=== PATIENT | female | born 1985 | race Caucasian/White ===

== ENCOUNTER 2018-01-20 17:18 | Emergency (ER) | payer BC ==
--- OUTSIDE RECORDS SUMMARY | 2018-01-20 17:28 | XMS REPORT ---
:1985 External Reference #:[id number] Author Organization [facility] Address [address] [place] [address] [place] [address] Phone [phone] Care Team Providers Name Role Phone Bg Rowley MD Care Team Information Senior Health Educator Unavailable Payers Type Date Identification Numbers Payment Provider Subscriber Commercial Effective: Policy Number: [id number] BS Giovanna Mendez 2017 PayID: [id number] [address] [place] [address] Problems Description No Information Family History Date Family Member(s) Problem(s) Comments Mother Hypertension Mother fibroid tumors Social History Type Date Description Comments Lives With Principal at [facility] Lives With Daughter Occupation Speech Therapist Smoking Patient has never smoked Exercise Type/Frequency Exercises regularly 2-3x/week Allergies, Adverse Reactions, Alerts Date Description Reaction Status Severity Comments 12/13/2017 NKDA active Medications Medication Date Status Form Strength Qnty SIG Indications Ordering Provider Davina Active Tablets 0.35mg 28tabs one tablet Dvorah 0 po daily MD Amrik Vital Signs Date Vital Result Comment 12/21/2017 Height 64 inches 5'4" Weight 110.00 lb Heart Rate 107 /min BP Systolic 130 mmHg BP Diastolic 72 mmHg O2 % BldC Oximetry 98 % BMI (Body Mass Index) 18.9 kg/m2 12/13/2017 Height 64 inches 5'4" Weight 110.00 lb Heart Rate 79 /min BP Systolic 130 mmHg BP Diastolic 74 mmHg O2 % BldC Oximetry 98 % BMI (Body Mass Index) 18.9 kg/m2 Results Test Date Test Result H/L Range Note Laboratory test finding 12/21/2017 Cytology SEE RESULT BELOW 1 Laboratory test finding 12/13/2017 Cytology <pending> 1 SEE RESULT BELOW Name: [place] : [address]: Bg Rowley MD Acct: [id number] Unit: [id number] AGE: 32 Location: [facility] Re12/21/17 SEX: F Status: REG REF SPEC: [id number] DEVYN: 12/21/17-[address]: Bg Rowley MD REQ: [id number] RECD: 12/21/17 STATUS: SOUT _ ORDERED: TP IMAGE ANALYS, HPV/Thin Prep COMMENTS: [id number] Negative for Intraepithelial lesion or Malignancy A. Ectocervical/Endocervical Specimen Adequacy: Satisfactory of evaluation Transformation zone component identified Patient Information: HPV: High risk HPV RNA testing regardless of pap results. Actual Specimen Date: 12/21/17 ?: N Post Menopausal?: N Hysterectomy?: N Date Time Test Result Flag (u) Normal Range 12/21/17 1400 @ HPV RNA Negative Negative @ @ The high-risk HPV types detected by the assay include: 16, @ 18, 31, 33, 35, 39, 45, 51, 52, 56, 58, 59, 66, and 68. Signed by and Reported on: Filipe TREE [place] (ASCP) [id number] This Pap test was evaluated with the assistance of the [employer] Test Imaging System. Due to cytologic findings at the shear setter microscope, comprehensive manual rescreening by a Podiatry Assistant may be required. The Pap Smear is a screening test designed to aid in the detection of premalignant and malignant conditions of the uterine cervix. It is not a diagnostic procedure and should not be used as the sole means of detecting cervical cancer. Both false- positive and false- negative reports do occur. Depending on your risk status, a Pap smear should be obtained and evaluated every 1-3 years. END OF REPORT DEPARTMENT OF PATHOLOGY, [address] [place] [address] Jacob Phelps M.D. Director [facility] # [id number] Procedures Description No Information Encounters Type Date Location Provider CPT E/M Dx Office Visit 12/13/2017 3:00p [facility] [place] [address] [id number] of [facility] Plan of Care 12/21/2017 - Bg Rowley MDZ12.4 Encounter for screening for malignant neoplasm of cervixComments:Expect Pap result within 1 week, recommend call office if does not receive.Follow up:No co-pay, had to repeat Pap because it was not labeled correctly first time-DM
[2018-01-20 17:48] VITALS: BP 126/78
--- NOTE | 2018-01-20 19:26 | UC ---
Bite Injury/Animal HPI - HPI Summary HPI Summary: 32 yo female presents with bat exposure. She tells me that on 01/09 she and her family noticed their cat chasing a bat around the house. Unsure when it got into the house overnight. Pt does not think she was bitten. Tetanus was updated within the last 2 years - History of Current Complaint Chief Complaint: UCGeneralIllness Hx Obtained From: Patient Pain Intensity: 0 - Allergies/Home Medications Allergies/Adverse Reactions: Allergies Allergy/AdvReac Type Severity Reaction Status Date / Time No Known Allergies Allergy Verified 01/20/18 17:49 Home Medications: Home Medications NK [No Home Medications Reported] 01/20/18 [History Confirmed 01/20/18] PMH/Surg Hx/FS Hx/Imm Hx - Additional Past Medical History Additional PMH: None Previously Healthy: Yes - Surgical History Surgical History: Yes Surgery Procedure, Year, and Place: wisdom teeth - Family History Known Family History: Positive: None - Social History Occupation: Employed Full-time Lives: With Family Alcohol Use: Weekly Substance Use Type: None Smoking Status (MU): Never Smoked Tobacco Review of Systems Constitutional: Negative Skin: Negative Respiratory: Negative Cardiovascular: Negative Neurovascular: Negative Neurological: Negative Psychological: Negative All Other Systems Reviewed And Are Negative: Yes Physical Exam - Summary Physical Exam Summary: GENERAL: NAD. WDWN. No pain distress. SKIN: No puncture wounds or appreciated bite site. No streaking, bleeding, or drainage. NECK: Supple. Nontender. No lymphadenopathy. CHEST: No accessory muscle use. Breathing comfortably and in no distress. CV: Pulses intact. Cap refill <2seconds NEURO: Alert. CN II-XII grossly intact. PSYCH: Age appropriate behavior. Triage Information Reviewed: Yes Vital Signs: Initial Vital Signs Temp 99.4 F 01/20/18 17:44 Pulse 101 01/20/18 17:44 Resp 16 01/20/18 17:44 BP 126/78 01/20/18 17:44 Pulse Ox 100 01/20/18 17:44 Vital Signs Reviewed: Yes Bite Injury Course/Dx - Course Course Of Treatment: Rabies vaccine and RIG given according to guidelines. All questions answered - Differential Dx/Diagnosis Provider Diagnoses: Bat exposure Discharge - Sign-Out/Discharge Documenting (check all that apply): Patient Departure - Discharge Plan Condition: Stable Disposition: HOME Patient Education Materials: Rabies Immune Globulin (By injection), Rabies (ED) , Rabies Vaccine (ED) Referrals: No Primary Care Phys,NOPCP [Primary Care Provider] - Additional Instructions: If you develop a fever, shortness of breath, chest pain, new or worsening symptoms - please call your PCP or go to the ED. - Billing Disposition and Condition Condition: STABLE Disposition: Home
[2018-01-20] MEDS ORDERED: Tetan/Diph/Pertus SYR(Tdap)* 0.5 ML SYR(BOOSTRIX) use SYR IM ONE (19:29)
[2018-01-20] MEDS ORDERED: Rabies Immune Globulin 10 ML* 150 UNIT/ML VIAL (KEDRAB) IM ONE (19:29)
[2018-01-20] MEDS ORDERED: Rabies VIRUS VACCINE (Imovax)* 2.5 UNIT/ML 1 ML IM ONE (19:29)
[2018-01-20] MEDS ORDERED: Rabies Immune Globulin 10 ML* 150 UNIT/ML VIAL ONE ×2 (19:59→20:01)
== END 2018-01-20 20:35 | disposition home or self-care (01) ==
LOC: UCEAST 17:18
DX: Z20.3 Contact with and (suspected) exposure to rabies (principal); Z29.14 Encounter for prophylactic rabies immune globulin; Z23 Encounter for immunization
CPT/HCPCS: 90375; 90471; 96372; 99211; G0463

== ENCOUNTER 2018-03-23 15:20 | Emergency (ER) | payer BC ==
[2018-03-23 17:20] VITALS: BP 126/75
--- NOTE | 2018-03-23 18:00 | UC ---
Laceration HPI - HPI Summary HPI Summary: laceration left mid pal near 4/5 metacarpals. cut had on a paring knife while peeling an apple 3 hours ago - History Of Current Complaint Chief Complaint: UCLaceration Stated Complaint: HAND LAC Time Seen by Provider: 03/23/18 17:49 Hx Obtained From: Patient Hx Last Menstrual Period: currently nursing Laceration Location: Hand - palmar surface of left hand Mechanism Of Injury: Sharp Trauma Onset/Duration: Sudden Onset Pain Intensity: 0 Pain Scale Used: 0-10 Numeric - Allergies/Home Medications Allergies/Adverse Reactions: Allergies Allergy/AdvReac Type Severity Reaction Status Date / Time No Known Allergies Allergy Verified 01/20/18 17:49 Home Medications: Home Medications Pnv No.95/Ferrous Fum/Folic AC [ Tablet] 1 tab 03/23/18 [History] PMH/Surg Hx/FS Hx/Imm Hx Previously Healthy: Yes - Surgical History Surgical History: Yes Surgery Procedure, Year, and Place: wisdom teeth - Family History Known Family History: Positive: None - Social History Occupation: Employed Full-time Lives: With Family Alcohol Use: None Substance Use Type: None Smoking Status (MU): Never Smoked Tobacco Review of Systems Constitutional: Negative Skin: Other - 5mm superficial laceration bowling surface of left hand Eyes: Negative ENT: Negative Respiratory: Negative Cardiovascular: Negative Gastrointestinal: Negative Genitourinary: Negative Motor: Negative Neurovascular: Negative Musculoskeletal: Negative Neurological: Negative Psychological: Negative Is Patient Immunocompromised?: No All Other Systems Reviewed And Are Negative: Yes Physical Exam Triage Information Reviewed: Yes Appearance: Well-Appearing, No Pain Distress, Well-Nourished Vital Signs: Initial Vital Signs Temp 98.5 F 03/23/18 17:16 Pulse 113 03/23/18 17:16 Resp 18 03/23/18 17:16 BP 126/75 03/23/18 17:16 Pulse Ox 100 03/23/18 17:16 Vital Signs Reviewed: Yes Eye Exam: Normal Eyes: Positive: Conjunctiva Clear ENT Exam: Normal ENT: Positive: Normal ENT inspection, Hearing grossly normal. Negative: Trismus , Muffled voice, Hoarse voice Dental Exam: Normal Neck exam: Normal Neck: Positive: Supple, Nontender, No Lymphadenopathy Respiratory Exam: Normal Respiratory: Positive: Chest non-tender, No respiratory distress, No accessory muscle use Cardiovascular Exam: Normal Cardiovascular: Positive: RRR, Pulses Normal, Brisk Capillary Refill Musculoskeletal Exam: Normal Musculoskeletal: Positive: Strength Intact, ROM Intact, No Edema Neurological Exam: Normal Neurological: Positive: Alert, Muscle Tone Normal Psychological Exam: Normal Skin Exam: Normal Skin: Positive: Other - 5mm supefical laceration to left hand as described n/m /c intact distally no bleeding Laceration Repair - Laceration Repair 1 Description: Linear Laceration Size After Repair: Length (cm) - 0.5, Width (mm) - 1, Depth (mm) - 1 Modified For Repair: No Cleansing Completed Via Routine Prep: Yes Irrigation With Pressure Irrigation Device: Yes Closure Material: Skin Adhesive Re-Evaluation - Re-Evaluation First Eval Change: Improved - no bleeding wound well approximated with glue patient tolerated well n/m/c intact Laceration Course/Dx - Course/Dx Course Of Treatment: skin glue instructions, finger splint folow with pcp prn - Differential Dx - Laceration/Wound Provider Diagnoses: 5 mm laceration left palm repaired with skin glue Discharge - Sign-Out/Discharge Documenting (check all that apply): Patient Departure All imaging exams completed and their final reports reviewed: No Studies - Discharge Plan Condition: Stable Disposition: HOME Patient Education Materials: Skin Adhesive Care (ED) Referrals: [facility] [place]] - If Needed - Billing Disposition and Condition Condition: STABLE Disposition: Home
== END 2018-03-23 18:42 | disposition home or self-care (01) ==
LOC: UCEAST 15:20
DX: S61.412A Laceration without foreign body of left hand, initial encounter (principal); W26.0XXA Contact with knife, initial encounter; Y93.G1 Activity, food preparation and clean up; Y92.9 Unspecified place or not applicable
CPT/HCPCS: 12001; 99211; G0463

== ENCOUNTER 2018-06-14 06:00 | Day surgery (SDC) | payer BC ==
[~2018-06-14 06:00] MED LIST: Buffered Lidocaine 0.9% SYRIN* 5 ML/SYR SYRINGE INTRADERM ONE; Lactated Ringers 1000 ML Bag* 1,000 ML IV SCH; Sodium Citrate/Citric Acid* 15 ML UDC PO ONE
[2018-06-14] MEDS ORDERED: Buffered Lidocaine 1% SYRIN* 1 ML/SYRINGE ONE (06:46)
[2018-06-14] MEDS ORDERED: Sodium Citrate/Citric Acid* 15 ML UDC ONE (06:46)
[2018-06-14] MEDS ORDERED: fentaNYL* 50 MCG/ML 2 ML VIAL (100 MCG VIAL) ONE (07:25)
[2018-06-14] MEDS ORDERED: Lidocaine 2% PF * 5 ML VIAL ONE (07:25)
[2018-06-14] MEDS ORDERED: Propofol* 10 MG/ML 20 ML BTL ONE (07:25)
[2018-06-14] MEDS ORDERED: Midazolam* 1 MG/ML 2 ML VIAL (2 MG) ONE (07:25)
[2018-06-14] MEDS ORDERED: Ondansetron INJ* 2 MG/ML VIAL IV PRN (07:33)
[2018-06-14] MEDS ORDERED: fentaNYL* 50 MCG/ML 2 ML VIAL (100 MCG VIAL) IV PRN (07:33)
[2018-06-14] MEDS ORDERED: Naloxone* 0.4 MG/ML 1 ML VIAL IV PRN (07:33)
[2018-06-14] MEDS ORDERED: ceFOXitin 2 GM IVPREMIX* 2 GM/50 ML BAG ONE (07:41)
[2018-06-14] MEDS ORDERED: OXYTOCIN* 10 UNITS/ML 1 ML VIAL ONE (08:05)
[2018-06-14 09:19] VITALS: BP 117/71
--- NOTE | 2018-06-20 21:08 | OP ---
DATE OF OPERATION: 06/14/18 - [facility] DATE OF : 83 SURGEON: Dr. Alan Roberts ANESTHESIA: General anesthetic with endotracheal intubation. PRE-OP DIAGNOSIS: Incomplete in the first trimester. POST-OP DIAGNOSIS: Incomplete in the first trimester. OPERATIVE PROCEDURE: Dilation and evacuation. FINDINGS: Under exam was a uterus that sounded to 9 cm in an anteverted position, a cervix that was 1 cm dilated, and moderate amounts of products of conception were removed from the procedure. ESTIMATED BLOOD LOSS: Minimal, less than 10 cc. SPECIMENS SENT TO PATHOLOGY: Endometrial curettings. FLUIDS: She received 1 L of IV crystalloid fluid. URINE OUTPUT: Clear. DESCRIPTION OF PROCEDURE: The patient was taken to the operating room where she was identified. She was placed on the operating table where a general anesthetic with endotracheal intubation was obtained without difficulty. She was then placed in the dorsal lithotomy position, prepped and draped in a normal sterile fashion. Attention was then brought onto the patient's perineum, where the bladder was catheterized and emptied of clear urine. A weighted speculum was then inserted into the patient's vagina. The cervix was identified then grasped with a single-tooth tenaculum. The cervix was noted to be 1 cm dilated. At this point, the uterus was sounded to 9 cm, it was noted to be in an anteverted position. Through the cervix, a 10-mm curved suction curette was introduced, it was then attached to suction and a suction curettage was performed. Once the uterus was deemed to be empty with a suction curettage , the suction curette was removed and a sharp curettage was perform to assure complete denudation of the endometrial cavity. Once it was done, all the instruments were then removed from the patient's vagina. Sponge, lap, and needle counts were correct x2. She was then transferred to the recovery room area in stable condition. [id number]/[facility] #: [id number] [facility]ENTERSolomon
== END 2018-06-14 09:38 | disposition home or self-care (01) ==
LOC: OR 06:00
PROVIDERS: ATTEND Obstetrics & Gynecology
DX: O03.4 Incomplete spontaneous abortion without complication (principal)
CPT/HCPCS: 88305; A9270-GY; J0694; J2250; J2590; J2704; J3010

== ENCOUNTER 2018-11-08 06:26 | Day surgery (SDC) | payer BC ==
[~2018-11-08 06:26] MED LIST changes: -Buffered Lidocaine 0.9% SYRIN* 5 ML/SYR SYRINGE INTRADERM ONE; +Buffered Lidocaine 1% SYRIN* 1 ML/SYRINGE INTRADERM ONE; +Dexamethasone TAB* 4 MG PO ONE; +Famotidine IV* 10 MG/ML 2 ML (20 mg) IV ONE; +Ondansetron TAB* 4 MG PO ONE; -Sodium Citrate/Citric Acid* 15 ML UDC PO ONE
[2018-11-08] MEDS ORDERED: Scopolamine 1.5 mg* PATCH TRANSDERM PRN (06:53)
[2018-11-08] MEDS ORDERED: Naloxone* 0.4 MG/ML 1 ML VIAL IV PRN (06:53)
[2018-11-08] MEDS ORDERED: oxyCODONE TAB* 5 MG TAB PO PRN (06:53)
[2018-11-08] MEDS ORDERED: fentaNYL* 50 MCG/ML 2 ML VIAL (100 MCG VIAL) IV PRN (06:53)
[2018-11-08] MEDS ORDERED: DiMENhydriNATE IV* 50 MG/ML VIAL IV PUSH PRN (06:53)
[2018-11-08] MEDS ORDERED: Morphine 4 MG/ML VIAL (1 ml) 4 MG/ML VIAL IV PRN (06:53)
[2018-11-08] MEDS ORDERED: PROCHLORPERAZINE INJ 5 MG/ML 2 ML VIAL IV PRN (06:53)
[2018-11-08] MEDS ORDERED: Dexamethasone IV* 4 MG/ML 1 ML (4 MG) ONE (07:14)
[2018-11-08] MEDS ORDERED: Ondansetron ODT TAB* 4 MG ONE (07:15)
[2018-11-08] MEDS ORDERED: Famotidine IV* 10 MG/ML 2 ML (20 mg) ONE (07:15)
[2018-11-08] MEDS ORDERED: Dexamethasone TAB* 4 MG ONE (07:40)
[2018-11-08] MEDS ORDERED: Midazolam* 1 MG/ML 2 ML VIAL (2 MG) ONE (08:14)
[2018-11-08] MEDS ORDERED: KETAMINE HCL* 50 MG/ML 10 ML VIAL ONE (08:14)
[2018-11-08] MEDS ORDERED: fentaNYL* 50 MCG/ML 2 ML VIAL (100 MCG VIAL) ONE (08:14)
[2018-11-08] MEDS ORDERED: Silver Nitrate/Potassium Nitr* 1 EA STICK ONE (08:28)
[2018-11-08] MEDS ORDERED: Lidocaine 1% INJ* 10 MG/ML 30 ML SDV ONE (08:28)
[2018-11-08] MEDS ORDERED: Acetaminophen IV 1GM/100ML * 100 ML ONE (08:42)
[2018-11-08] MEDS ORDERED: Propofol* 10 MG/ML 20 ML BTL ONE (08:42)
[2018-11-08] MEDS ORDERED: Lidocaine 2% PF * 5 ML VIAL ONE (08:42)
[2018-11-08] MEDS ORDERED: Ketorolac INJ* 30 MG/ML 1 ML VIAL ONE (08:42)
[2018-11-08 09:51] VITALS: BP 120/70
[2018-11-11] MEDS ORDERED: Scopolamine PATCH Remove* 1 NOTE MISC PATCH OFF ONE (06:54)
--- NOTE | 2018-11-13 12:05 | OP ---
OPERATIVE REPORT: DATE OF OPERATION: 11/08/18 DATE OF : 83 SURGEON: Alan Roberts MD ANESTHESIA: General anesthetic with endotracheal intubation. PRE-OP DIAGNOSIS: Missed at 8 weeks of estimated gestational age. POST-OP DIAGNOSIS: Missed at 8 weeks of estimated gestational age. OPERATIVE PROCEDURE: Dilation and evacuation of products of conception via suction curettage. ESTIMATED BLOOD LOSS: None. SPECIMEN SENT TO PATHOLOGY: Endometrial curettings, products of conception. FLUIDS: She received 1 L of IV crystalloid fluid. URINE OUTPUT: None. FINDINGS: Exam under anesthesia revealed normal external genitalia. A speculum exam revealed cervix , which was about 1 cm dilated. The uterus sounded to 8 cm in anteverted position and there were mod erate amounts of products of conception removed and sent to pathology. DESCRIPTION OF PROCEDURE: The patient was taken to the operating room where she was identified. She was placed on the operating table where a general anesthetic with endotracheal intubation was obtain ed without difficulty. She was then placed in the dorsal lithotomy position, prepped and draped in t he normal sterile fashion. Attention was then brought on to the patient's peritoneum where the bladde r was catheterized; however, no urine was noted. She had an empty bladder. At this point, a weighte d speculum was inserted into the patient's vagina. The cervix was identified and was noted to be abo ut a centimeter dilated. I appreciated the uterus, which was noted to about 8 cm in an anteve rted position. After which 8 mm curve suction curette was introduced through the cervix up to the fu ndus of the uterus. Suction was applied and suction curettage was performed. After the suction cure ttage, was deemed to empty the entire uterine cavity, this was followed by a sharp curettage to assur e complete denudation of the endometrial cavity. At this point, all the instruments were removed fro m the patient's vagina. Sponge, lap, needle counts were correct x2. She was then transferred to rec [facility] room area in stable condition. [id number]/[facility] #: [id number]
== END 2018-11-08 10:27 | disposition home or self-care (01) ==
LOC: OR 06:26
PROVIDERS: ATTEND Obstetrics & Gynecology
DX: Z01.818 Encounter for other preprocedural examination (principal); O02.1 Missed abortion
CPT/HCPCS: 81229; 88305; A9270-GY; J1100; J1885; J2250; J2704; J3010; J8540

== ENCOUNTER 2019-06-02 09:17 | Day surgery (SDC) | payer BC ==
[~2019-06-02 09:17] MED LIST changes: -Dexamethasone TAB* 4 MG PO ONE; -Ondansetron TAB* 4 MG PO ONE
[2019-06-02] MEDS ORDERED: Famotidine IV* 10 MG/ML 2 ML (20 mg) ONE (10:02)
[2019-06-02] MEDS ORDERED: DOXYcycline IV 200 MG in NS 250 mL *Pre-Op OBGYN IVPB ONE (11:00)
[2019-06-02 11:20] LABS: ABS Monocytes 0.4 10^3/ul (0-0.8); ABS Neutrophils 2.9 10^3/ul (1.5-7.7); Eosinophil % 0.8 %; Hematocrit 36 % (35-47); Hemoglobin 12.6 g/dL (12.0-16.0); Lymphocyte % 23.3 %; Mean Corpuscular HGB Conc 35 g/dL (31-36); Mean Corpuscular Hemoglobin 32 pg (27-31); Mean Corpuscular Volume 91 fL (80-97); Mean Platelet Volume 8.1 fL (7.4-10.4); Nucleated Red Blood Cells % 0.2; Platelet Count 174 10^3/uL (150-450); Red Blood Count 3.94 10^6 /uL (3.70-4.87); Red Cell Distribution Width 13 % (10-15); White Blood Count 4.4 10^3/uL (3.5-10.8)
[2019-06-02] MEDS ORDERED: Midazolam* 1 MG/ML 2 ML VIAL (2 MG) ONE (11:23)
[2019-06-02] MEDS ORDERED: Propofol* 10 MG/ML 20 ML BTL ONE (11:26)
[2019-06-02] MEDS ORDERED: fentaNYL* 50 MCG/ML 2 ML VIAL (100 MCG VIAL) ONE (11:27)
[2019-06-02] MEDS ORDERED: Dexamethasone IV* 4 MG/ML 1 ML (4 MG) ONE (11:35)
[2019-06-02] MEDS ORDERED: Ondansetron INJ* 2 MG/ML VIAL ONE (11:56)
[2019-06-02] MEDS ORDERED: oxyCODONE TAB* 5 MG TAB PO PRN (12:09)
[2019-06-02] MEDS ORDERED: DiMENhydriNATE IV* 50 MG/ML VIAL IV PUSH PRN (12:09)
[2019-06-02] MEDS ORDERED: Naloxone* 0.4 MG/ML 1 ML VIAL IV PRN (12:09)
[2019-06-02] MEDS ORDERED: fentaNYL* 50 MCG/ML 2 ML VIAL (100 MCG VIAL) IV PRN (12:09)
[2019-06-02] MEDS ORDERED: Ondansetron INJ* 2 MG/ML VIAL IV PRN (12:09)
[2019-06-02] MEDS ORDERED: HYDROmorphone INJ1* 1 MG/ML SYRINGE IV PRN (12:09)
[2019-06-02 14:01] VITALS: BP 105/59
--- NOTE | 2019-06-03 01:39 | OP ---
OPERATIVE REPORT: DATE OF OPERATION: 06/02/19 DATE OF : 83 SURGEON: Alan Roberts MD. ETL CONSULTANT: None. ANESTHESIA: General anesthetic with endotracheal intubation. PRE-OP DIAGNOSIS: Incomplete , first trimester. POST-OP DIAGNOSIS: Incomplete , first trimester. OPERATIVE PROCEDURE: Dilation and evacuation. ESTIMATED BLOOD LOSS: None. SPECIMENS SENT TO PATHOLOGY: Endometrial curettings. FLUIDS: She received 800 cc of IV crystalloid fluid. URINE OUTPUT: 200 cc of clear urine. FINDINGS: Exam under anesthesia revealed a cervix which was about 1 cm dilated, a uterus that was i n anteverted position with 8 cm inlet. There were moderate amounts of products of conception, remove d and sent to Pathology. DESCRIPTION OF PROCEDURE: The patient was taken to the operating room where she was identified. She was placed on the operating table where general anesthetic with endotracheal intubation was obtained without difficulty. She was then placed in the dorsal lithotomy position, prepped and draped in a n ormal sterile fashion. Attention was then brought onto the patient's perineum where the bladder was catheterized and emptied of clear urine. A weighted speculum was then inserted into the patient's va emmy. The cervix was identified and grasped with a single- tooth tenaculum, after which the uterus was then sounded to about 8 cm in anteverted position. A 10-mm curved curette was introduced into ut erus and attached to suction. A suction curettage was then performed. The uterus was deemed to be e mptied. A sharp curettage was performed to confirm the of the endometrial cavity. At this po int, all the instruments were removed from the patient's vagina. Sponge, lap, and needle counts were correct x2. The specimen was sent to Pathology. The patient was sent to recovery room area in stab le condition. [id number]/[facility] #: [id number]
== END 2019-06-02 14:04 | disposition home or self-care (01) ==
LOC: OR 09:17
PROVIDERS: ATTEND Obstetrics & Gynecology
DX: O07.4 Failed attempted termination of pregnancy without complication (principal)
CPT/HCPCS: 36415; 85025; 88305; J1100; J2250; J2405; J2704; J3010

== ENCOUNTER 2020-06-30 09:55 | Inpatient (IN) ==
[2020-06-30] MEDS ORDERED: Lactated Ringers 1000 ml BAG 1,000 ML IV ONE (11:11)
[2020-06-30] MEDS ORDERED: Penicillin G Potassium IV 5,000,000 UNITS in NS 0.9% 100 ml BAG 100 ML IVPB ONE (11:11)
[2020-06-30] MEDS ORDERED: Buffered Lidocaine 1% SYRIN 1 ml INTRADERM ONE (11:11)
[2020-06-30] MEDS ORDERED: Lactated Ringers 1000 ml BAG 1,000 ML IV SCH ×2 (12:00→17:00)
[2020-06-30 12:46] LABS: ABS Lymphocytes 1.8 10^3/ul (1.0-4.8); ABS Monocytes 0.8 10^3/ul (0-0.8); ABS Neutrophils 7.9 10^3/ul (1.5-7.7); Eosinophil % 0.3 %; Hematocrit 39 % (35-47); Hemoglobin 12.4 g/dL (12.0-16.0); Lymphocyte % 16.8 %; Mean Corpuscular HGB Conc 32 g/dL (31-36); Mean Corpuscular Hemoglobin 27 pg (27-31); Mean Corpuscular Volume 83 fL (80-97); Nucleated Red Blood Cells % 0.1; Platelet Count 232 10^3/uL (150-450); Red Blood Count 4.67 10^6 /uL (3.70-4.87); Red Cell Distribution Width 22 % (10-15); White Blood Count 10.5 10^3/uL (3.5-10.8)
[2020-06-30 13:12] LABS: Urine Benzodiazepine Screen None Detected (None Detect); Urine Cannabinoids Screen None Detected (None Detect); Urine Opiates Screen None Detected (None Detect)
[2020-06-30] MEDS ORDERED: Penicillin G Potassium IV 3,000,000 UNITS in NS 0.9% 100 ml BAG 100 ML IVPB SCH (16:30)
[2020-06-30] MEDS ORDERED: Glycerin ADULT 2.4 gm SUPP PR PRN (16:41)
[2020-06-30] MEDS ORDERED: Dibucaine 1% OINT 28.35 GM TUBE PR PRN (16:41)
[2020-06-30] MEDS ORDERED: Witch Hazel PAD JAR TOPICAL PRN (16:41)
[2020-06-30] MEDS ORDERED: Oxytocin 10 UNITS/ML 1 ML VIAL IM ONE (16:41)
[2020-06-30] MEDS ORDERED: Oxytocin 10 UNITS/ML 1 ML VIAL ONE (18:41)
[2020-06-30] MEDS ORDERED: Lidocaine 1% VIAL 10 MG/ML VIAL ONE (18:42)
[2020-07-01 08:50] LABS: ABS Lymphocytes 2.6 10^3/ul (1.0-4.8); ABS Monocytes 1.4 10^3/ul (0-0.8); ABS Neutrophils 16.6 10^3/ul (1.5-7.7); Eosinophil % 0.2 %; Hematocrit 29 % (35-47); Hemoglobin 9.6 g/dL (12.0-16.0); Lymphocyte % 12.8 %; Mean Corpuscular HGB Conc 33 g/dL (31-36); Mean Corpuscular Hemoglobin 27 pg (27-31); Mean Corpuscular Volume 83 fL (80-97); Platelet Count 212 10^3/uL (150-450); Red Blood Count 3.51 10^6 /uL (3.70-4.87); Red Cell Distribution Width 22 % (10-15); White Blood Count 20.7 10^3/uL (3.5-10.8)
[2020-07-02 11:55] VITALS: BP 122/65
== END 2020-07-02 15:33 | disposition home or self-care (01) | DRG 560 ==
LOC: MCHOBOUT 09:55 → MCHOB 11:24
PROVIDERS: ADMIT Midwife; ATTEND Midwife